=== PATIENT | male | born 1955 | race Asian ===

== ENCOUNTER 2017-11-19 07:21 | Day surgery (SDC) | payer MEDICAID ==
[~2017-11-19] VITALS: Ht 162.6 cm; Wt 62.7 kg
[~2017-11-19 07:21] MED LIST: SODIUM CHLORIDE 0.9% 1,000 ML IV ONE
[2017-11-19] MEDS ORDERED: ATOR40TA28 PO (07:56)
[2017-11-19] MEDS ORDERED: FLUT16H NASAL (07:56)
[2017-11-19] MEDS ORDERED: ESCI10TA PO (07:56)
[2017-11-19] MEDS ORDERED: FAMO20 PO (07:56)
[2017-11-19] MEDS ORDERED: BUDE10.22 IH (07:56)
[2017-11-19] MEDS ORDERED: ZOLP5 PO (07:56)
[2017-11-19] MEDS ORDERED: MIDAZOLAM HCL 2 MG/2 ML VIAL ONE (08:17)
[2017-11-19] MEDS ORDERED: FentaNYL CITRATE-PF 100 MCG/2 ML VIAL ONE (08:17)
[2017-11-19] MEDS ORDERED: SODIUM CHLORIDE 0.9% 1,000 ML IV ONE (08:30)
[2017-11-19] MEDS ORDERED: MethylPREDNISolone SOD SUCC 125 MG/2 ML VIAL IVP ONE (09:15)
[2017-11-19] MEDS ORDERED: MethylPREDNISolone SOD SUCC 125 MG/2 ML VIAL ONE (09:32)
[2017-11-19] MEDS ORDERED: ALBUTEROL SULFATE 2.5 MG/0.5 ML NEB SOLUTION NEB ONE (14:25)
[2017-11-19] MEDS ORDERED: LIDOCAINE HCL 4% 50 ML SOLUTION ONE (14:25)
[2017-11-19] MEDS ORDERED: BENZOCAINE 20% 50 MCG/SPRAY 57 GM ONE (14:25)
[2017-11-19] MEDS ORDERED: LIDOCAINE HCL 2% 30 ML JELLY ONE (14:25)
[2017-11-19] MEDS ORDERED: OXYGEN THERAPY IH SCH (20:00)
== END 2017-11-19 10:20 | disposition home or self-care (01) ==
LOC: SURGERY 07:21
PROVIDERS: ATTEND Internal Medicine Critical Care Medicine
DX: J38.4 Edema of larynx (principal); B37.0 Candidal stomatitis; G47.33 Obstructive sleep apnea (adult) (pediatric); M19.90 Unspecified osteoarthritis, unspecified site; E78.00 Pure hypercholesterolemia, unspecified; I25.10 Atherosclerotic heart disease of native coronary artery without angina pectoris; E11.9 Type 2 diabetes mellitus without complications; F10.21 Alcohol dependence, in remission; Z95.5 Presence of coronary angioplasty implant and graft; Z95.1 Presence of aortocoronary bypass graft; Z87.891 Personal history of nicotine dependence; Z79.899 Other long term (current) drug therapy
CPT/HCPCS: 31623; 31624; 71045; 87015; 87070; 87205; 87220; 88108; 88312; J2250; J2930; J3010; J7030

== ENCOUNTER 2021-12-03 05:24 | Day surgery (SDC) | payer MEDICAID ==
[~2021-12-03] VITALS: Ht 162.6 cm; Wt 63.6 kg
[~2021-12-03 05:24] MED LIST changes: +ATOR40TA28 PO; +BUDE10.22 IH; +ESCI-8 PO; +FAMO20 PO; +FLUT16H NASAL; -SODIUM CHLORIDE 0.9% 1,000 ML IV ONE; +ZOLP-280 PO
[2021-12-03] MEDS ORDERED: ALBUTEROL SULFATE 2.5 MG/0.5 ML NEB SOLUTION NEB ONE (05:25)
[2021-12-03] MEDS ORDERED: LIDOCAINE 2% 30 ML JELLY TP ONE (05:25)
[2021-12-03] MEDS ORDERED: BENZOCAINE 20% 50 MCG/SPRAY 57 GM TP ONE (05:25)
[2021-12-03] MEDS ORDERED: LIDOCAINE 4% 50 ML SOLUTION TP ONE (05:25)
[2021-12-03 07:08] LABS: COVID AG,FIA SOURCE NASOPHARYNGEAL
[2021-12-03] MEDS ORDERED: SODIUM CHLORIDE 0.9% 1,000 ML IV ONE (07:15)
[2021-12-03] MEDS ORDERED: SODIUM CHLORIDE 0.9% 1,000 ML ONE (07:15)
[2021-12-03] MEDS ORDERED: MIDAZOLAM HCL 5 MG/ML VIAL ONE (07:44)
[2021-12-03] MEDS ORDERED: FentaNYL CITRATE PF 100 MCG/2 ML VIAL ONE (07:44)
[2021-12-03] MEDS ORDERED: INSU100I26 IM (07:49)
[2021-12-03] MEDS ORDERED: METF-1211 PO (07:49)
[2021-12-03 08:16] LABS: GLUCOMETER DEV NAME(LOC) SDS.; GLUCOSE,POINT OF CARE 118 MG/DL (70-110)
[2021-12-03] MEDS ORDERED: MethylPREDNISolone SOD SUCC 125 MG/2 ML VIAL IVP ONE (08:30)
[2021-12-03] MEDS ORDERED: MethylPREDNISolone SOD SUCC 125 MG/2 ML VIAL ONE (08:35)
[2021-12-03] MEDS ORDERED: OXYGEN THERAPY IH SCH (20:00)
== END 2021-12-03 11:10 | disposition home or self-care (01) ==
LOC: SURGERY 05:24
PROVIDERS: ATTEND Internal Medicine Critical Care Medicine
DX: J38.4 Edema of larynx (principal); B37.0 Candidal stomatitis; E11.9 Type 2 diabetes mellitus without complications; Z79.899 Other long term (current) drug therapy; Z98.890 Other specified postprocedural states
CPT/HCPCS: 31623; 31624; 71045; 82962; 87015; 87070; 87101; 87206; 87220; 87426; 88112; 88184; 88185; 88305; 88312; C9803; J2250; J2930; J3010; J7030; J7613; Z7610